=== PATIENT | female | born 1935 | race Caucasian/White ===

== ENCOUNTER 2018-09-08 20:21 | Inpatient (IN) | payer MEDICARE, BC ==
[~2018-09-08] VITALS: Ht 152.4 cm; Wt 54.4 kg
[2018-09-08] MEDS ORDERED: OS-CAL500 MG (20:24)
[2018-09-08] MEDS ORDERED: VITAMIN B COMPLEX (20:24)
[2018-09-08] MEDS ORDERED: CO Q PO (20:25)
[2018-09-08] MEDS ORDERED: [UNRECOGNIZED DRUG - OTHER] (20:25)
[2018-09-08] MEDS ORDERED: FUROSEMIDE20 MG PO (20:25)
[2018-09-08] MEDS ORDERED: LISINOPRIL40 MG PO (20:26)
[2018-09-08] MEDS ORDERED: PROSTAT (20:26)
[2018-09-08] MEDS ORDERED: TENORMIN25 MG PO (20:26)
[2018-09-08] MEDS ORDERED: K-TAB10 MEQ PO (20:26)
[2018-09-08] MEDS ORDERED: COLACE100 MG PO (20:27)
[2018-09-08] MEDS ORDERED: OXYBUTYNIN CHLOR5 MG PO (20:27)
[2018-09-08 21:30] VITALS: BP 137/60
[2018-09-08 21:33] VITALS: BP 141/76
[2018-09-08 21:36] VITALS: BP 144/72
[2018-09-08 21:39] VITALS: BP 146/65
[2018-09-08 22:15] VITALS: BP 142/67
[2018-09-08 23:17] LABS: ALBUMIN 3.3 g/dL (3.4-5.0); ANION GAP 12.8 mmol/L (8-16); BILIRUBIN - TOTAL 0.39 mg/dL (0.2-1.3); CALCIUM 9.6 mg/dL (8.5-10.1); CARBON DIOXIDE 24.6 mmol/L (21.0-32.0); CREATININE - SERUM 0.8 mg/dL (0.6-1.3); POTASSIUM - SERUM 4.4 mmol/L (3.5-5.1); PROTEIN - SERUM 6.6 g/dL (6.4-8.2)
[2018-09-08 23:19] LABS: INR 1.12 (0.85-1.17); PROTIME 13.9 SECONDS (11.6-15.0)
[2018-09-08 23:20] LABS: BASOPHILS 0.2 % (0-2); EOSINOPHILS 1.5 % (0-7); HEMATOCRIT 41.3 % (36.0-48.0); IMMATURE GRANULOCYTES 0.2 % (0-5); LYMPHOCYTES 19.8 % (15-50); MCH 30.6 pg (26.0-34.0); MCHC 33.9 g/dL (31.0-37.0); MCV 90.4 fL (80.0-100.0); MONOCYTES 9.9 % (2-11); NEUTROPHILS 68.4 % (40-80); PLATELET COUNT 340 10x3/uL (130-400); RBC 4.57 10x6/uL (4.00-5.40); RDW 14.1 % (11.5-14.5)
[2018-09-09] VITALS (7 sets, daily range): BP systolic 117–136; BP diastolic 52–68; Ht 152.4 cm; Wt 54.4 kg
[2018-09-09 08:21] LABS: BASOPHILS 0.2 % (0-2); HEMATOCRIT 36.9 % (36.0-48.0); HEMOGLOBIN 12.5 g/dL (12-16); IMMATURE GRANULOCYTES 0.1 % (0-5); LYMPHOCYTES 20.8 % (15-50); MCH 30.3 pg (26.0-34.0); MCHC 33.9 g/dL (31.0-37.0); MCV 89.3 fL (80.0-100.0); MEAN PLATELET VOLUME 8.6 fL (7.4-10.4); MONOCYTES 12.6 % (2-11); NEUTROPHILS 65.3 % (40-80); RBC 4.13 10x6/uL (4.00-5.40); RDW 14.2 % (11.5-14.5)
[2018-09-09 08:24] LABS: PLATELET COUNT 428 10x3/uL (130-400)
[2018-09-09 08:45] LABS: ALBUMIN 2.8 g/dL (3.4-5.0); ANION GAP 10.2 mmol/L (8-16); BILIRUBIN - TOTAL 0.45 mg/dL (0.2-1.3); CREATININE - SERUM 0.8 mg/dL (0.6-1.3); POTASSIUM - SERUM 4.2 mmol/L (3.5-5.1); PROTEIN - SERUM 6.1 g/dL (6.4-8.2)
--- NOTE | 2018-09-09 17:19 | MORECARE ---
CASE MANAGEMENT DISCHARGE SUMMARY PATIENT: KEANU SHEPHERD UNIT: [id number] ADM DATE: 09/08/18 AGE: 82 : 36 SEX: F ROOM/BED: [facility] AUTHOR: AGGIE GONZALEZ PHYSICIAN: REFERRING PHYSICIAN: ALVAREZ DICKINSON MD DATE OF SERVICE: 09/09/18 Discharge Plan Patient Name: KEANU SHEPHERD Facility: [facility]:[place] : 1935 Planned Disposition: Usp Facility Anticipated Discharge Date: Discharge Date: Expected LOS: Initial Reviewer: [email or web address] Initial Review Date: 09/08/2018 Generated: 09/09/18 6:19 pm Patient Name: KEANU SHEPHERD Page 44415 at 4009 All edits/amendments must be made on the electronic document DICTATION DATE: 09/09/181718 HOG FEEDER: CAROL 09/09/181718 RPT#: [id number] DC DATE: STATUS: ADM IN [facility] [address] [place] [address] END OF REPORT
--- NOTE | 2018-09-09 17:27 | MORECARE ---
CASE MANAGEMENT DISCHARGE SUMMARY PATIENT: KEANU SHEPHERD UNIT: [id number] ADM DATE: 09/08/18 AGE: 82 : 36 SEX: F [facility]ED: [facility] AUTHOR: AGGIE GONZALEZ PHYSICIAN: REFERRING PHYSICIAN: ALVAREZ DICKINSON MD DATE OF SERVICE: 09/09/18 Discharge Plan Patient Name: KEANU SHEPHERD Facility: [facility]:[place] : 1935 Planned Disposition: Long Term Facility Anticipated Discharge Date: Discharge Date: Expected LOS: Initial Reviewer: [email or web address] Initial Review Date: 09/08/2018 Generated: 09/09/18 6:26 pm DCPIA - Discharge Planning Initial Assessment Updated by [email or web address]: Paulo Wynne on 09/09/18 5:21 pm * Is the patient Alert and Oriented? No * How many steps to enter\exit or inside your home? ELEVATOR * PCP DR. BETANCUR * [facility] * Preadmission Environment Long Term Facility * Facility Name [facility] * ADLs Partial Dependent * Partial ADLs (Assistance needed) Ambulation Bathing Dressing Medication Management Transfers * Equipment Walker Wheelchair * Other Equipment NO MEDICAL EQUIPMENT PROVIDER PREFERENCE * List name and contact numbers for known caregivers / representatives who currently or will assist patient after discharge: KENDAL SHEPHERD, BRIANER, * Verbal permission to speak to the caregivers and representatives has been obtained from the patient. Yes * Community resources currently utilized None * Please name any agencies selected above. NONE * Additional services required to return to the preadmission environment? No * Can the patient safely return to the preadmission environment? Yes * Has this patient been hospitalized within the prior 30 days at any hospital? Yes Last DP export: 09/09/18 4:19 p Patient Name: KEANU SHEPHERD Page [id number] at 1727 All edits/amendments must be made on the electronic document DICTATION DATE: 09/09/181725 WHARF WORKER: CAROL 09/09/181725 RPT#: [id number] DC DATE: STATUS: ADM IN [address] [place] [address] END OF REPORT
--- NOTE | 2018-09-09 17:38 | MORECARE ---
CASE MANAGEMENT DISCHARGE SUMMARY PATIENT: KEANU SHEPHERD UNIT: [id number] ADM DATE: 09/08/18 AGE: 82 : 36 SEX: F ROOM/BED: D.2163 AUTHOR: CARLOS,DOC PHYSICIAN: REFERRING PHYSICIAN: ALVAREZ DICKINSON MD DATE OF SERVICE: 09/09/18 Discharge Plan Patient Name: KEANU SHEPHERD Facility: [facility]:[place] : 1935 Planned Disposition: Care Home Facility Anticipated Discharge Date: Discharge Date: Expected LOS: Initial Reviewer: [email or web address] Initial Review Date: 09/08/2018 Generated: 09/09/18 6:37 pm Comments DCP- Discharge Planning Updated by [id number]: Paulo Wynne on 09/09/18 4:[address] Patient Name: KEANU SHEPHERD Admission Status: ER Accout number: [id number] Admission Date: 09-08-2018 : 1935 Admission Diagnosis: Attending: ALVAREZ DICKINSON Current LOS: 1 Anticipated DC Date: Planned Disposition: Care Home Facility Primary Insurance: MEDICARE A & B PLANNED EXTERNAL PROVIDER: [facility], MEDICARE REHAB BED Discharge Planning Comments: CM MET WITH PT IN ROOM TO DISCUSS DISCHARGE PLANNING AND NEEDS. PT REPORTS LIVING AT [facility] ASSISTED LIVING. PT HAS WALKER AND WHEELCHAIR WITH NO MEDICAL EQUIPMENT PROVIDER PREFERENCE. PT HAS NO OUTSIDE SERVICES ASSISTING IN THE HOME. CM DISCUSSED AVAILABILITY OF HOME HEALTH, REHAB SERVICES AND MEDICAL EQUIPMENT. PT DENIES DISCHARGE NEEDS, REPORTS SHE WANTS TO RETURN TO [facility] AT DISCHARGE. PT REPORTS HER REASON FOR BEING IN THE HOSPITAL IS THE GIRL AT THE REHAB HERE PULLED HER UP ON THE BED AND HURT HER SHOULDER. CM CLAIRIED, [facility] CM CALLED REHAB, PT HAS NOT BEEN THERE. UPON FURTHER DISCUSSED, IT WAS DETERMINED PT CAME FROM [facility]. PT WOULD LIKE TO GO HOME IF POSSIBLE, BACK TO [facility]. CM EXPLAINED THAT PT WILL NEED TO BE FUNCTIONING WELL ENOUGH TO RETURN TO HER APARTMENT ALONE AND MAY NEED FURHTER REHAB. PT REPORTS HER BROTHER, MRAYCARMEN, TAKES CARE OF EVERYTHING BUT SHE DOES NOT HAVE HIS PHONE NUMBER. CM CALLED HEIDI AT [facility], , WHO EXPLAINED THAT PT HAS HAD SOME MILD CONFUSION AND THEY DO PLAN TO ACCEPT BACK FOR CONTINUED REHAB AT DISCHARGE WITH PLAN FOR PT TO RETURN TO [facility] AFTER REHAB AND WHEN PT IS ABLE TO PHYSICALLY ASSIST ADEQUATELY AND SAFELY WITH HER OWN CARE. [facility] PROVIDED CONTACT NUMBER FOR BROTHER MITCHELL, . CM CALLED AND LEFT MESSSAGE ASKING FOR RETURN CALL. BED HOLDING AT [facility] FOR CONTINUED REHAB AT DISCHARGE. FOR DISCHARGE, FAX DISCHARGE INFORMATION TO [facility] AT [phone], NURSE REPORT TO BE CALLED TO [facility] AT [phone]. [facility] TO ARRANGE VAN TRANSPORTATION. Mechanical Unit Repairer: Paulo Wynne DCPIA - Discharge Planning Initial Assessment Updated by [id number]: Paulo Wynne on 09/09/18 5:21 pm * Is the patient Alert and Oriented? No * How many steps to enter\exit or inside your home? ELEVATOR * PCP DR. BETANCUR * [facility] * Preadmission Environment Care Home Facility * Facility Name [facility] * ADLs Partial Dependent * Partial ADLs (Assistance needed) Ambulation Bathing Dressing Medication Management Transfers * Equipment Walker Wheelchair * Other Equipment NO MEDICAL EQUIPMENT PROVIDER PREFERENCE * List name and contact numbers for known caregivers / representatives who currently or will assist patient after discharge: BROTHER MITCHELL, * Verbal permission to speak to the caregivers and representatives has been obtained from the patient. Yes * Community resources currently utilized None * Please name any agencies selected above. NONE * Additional services required to return to the preadmission environment? No * Can the patient safely return to the preadmission environment? Yes * Has this patient been hospitalized within the prior 30 days at any hospital? Yes Last DP export: 09/09/18 4:26 p Patient Name: KEANU SHEPHERD Page 40633 at 1493 All edits/amendments must be made on the electronic document DICTATION DATE: 09/09/181736 LOADING UNIT TOOL SETTER: CAROL 09/09/181736 RPT#: [id number] DC DATE: STATUS: ADM IN [facility] [address] [place] [address] END OF REPORT
[2018-09-10 00:45] VITALS: BP 139/70
[2018-09-10 03:49] VITALS: BP 147/79
[2018-09-10 08:31] VITALS: BP 140/69
--- NOTE | 2018-09-10 10:07 | MORECARE ---
CASE MANAGEMENT DISCHARGE SUMMARY PATIENT: KEANU SHEPHERD UNIT: [id number] ADM DATE: 09/09/18 AGE: 82 : 36 SEX: F ROOM/BED: D.2133 AUTHOR: AGGIE GONZALEZ PHYSICIAN: REFERRING PHYSICIAN: ALVAREZ DICKINSON MD DATE OF SERVICE: 09/10/18 Discharge Plan Patient Name: KEANU SHEPHERD Facility: [facility]:[place] : 1935 Planned Disposition: Custodial Facility Anticipated Discharge Date: Discharge Date: Expected LOS: Initial Reviewer: [email or web address] Initial Review Date: 09/08/2018 Generated: 09/10/18 11:07 am Comments DCP- Discharge Planning Updated by [email or web address]: Cassie Santos on 09/10/18 9:[address] Patient Name: KEANU SHEPHERD Admission Status: ER Accout number: [id number] Admission Date: 09-09-2018 : 1935 Admission Diagnosis: Attending: ALVAREZ DICKINSON Current LOS: 1 Anticipated DC Date: Planned Disposition: Custodial Facility Primary Insurance: MEDICARE A & B Discharge Planning Comments: PT IS DISCHARGING BACK TO REHAB VIA REHAB TRANSPORTATION Meteorology Teacher: Cassie Santos DCP- Discharge Planning Updated by [email or web address]: Paulo Wynne on 09/09/18 4:[address] Patient Name: KEANU SHEPHERD Admission Status: ER Accout number: [id number] Admission Date: 09-08-2018 : 1935 Admission Diagnosis: Attending: ALVAREZ DICKINSON Current LOS: 1 Anticipated DC Date: Planned Disposition: Custodial Facility Primary Insurance: MEDICARE A & B PLANNED EXTERNAL PROVIDER: [facility], MEDICARE REHAB BED Discharge Planning Comments: CM MET WITH PT IN ROOM TO DISCUSS DISCHARGE PLANNING AND NEEDS. PT REPORTS LIVING AT [facility] ASSISTED LIVING. PT HAS WALKER AND WHEELCHAIR WITH NO MEDICAL EQUIPMENT PROVIDER PREFERENCE. PT HAS NO OUTSIDE SERVICES ASSISTING IN THE HOME. CM DISCUSSED AVAILABILITY OF HOME HEALTH, REHAB SERVICES AND MEDICAL EQUIPMENT. PT DENIES DISCHARGE NEEDS, REPORTS SHE WANTS TO RETURN TO [facility] AT DISCHARGE. PT REPORTS HER REASON FOR BEING IN THE HOSPITAL IS THE GIRL AT THE REHAB HERE PULLED HER UP ON THE BED AND HURT HER SHOULDER. CM CLAIRIED, PT STATES SHE WAS AT [facility]. CM CALLED REHAB, PT HAS NOT BEEN THERE. UPON FURTHER DISCUSSED, IT WAS DETERMIN[facility]. PT WOULD LIKE TO GO HOME IF POSSIBLE, BACK TO [facility]. CM EXPLAINED THAT PT WILL NEED TO BE FUNCTIONING WELL ENOUGH TO RETURN TO HER APARTMENT ALONE AND MAY NEED FURHTER REHAB. PT REPORTS HER BROTHER, MARYCARMEN, TAKES CARE OF EVERYTHING BUT SHE DOES NOT HAVE HIS PHONE NUMBER. CM CALLED HEIDI AT [facility], , WHO EXPLAINED THAT PT HAS HAD SOME MILD CONFUSION AND THEY DO PLAN TO ACCEPT BACK FOR CONTINUED REHAB AT DISCHARGE WITH PLAN FOR PT TO RETURN TO [facility] AFTER REHAB AND WHEN PT IS ABLE TO PHYSICALLY ASSIST ADEQUATELY AND SAFELY WITH HER OWN CARE. [facility] PROVIDED CONTACT NUMBER FOR BROTHER MITCHELL, . CM CALLED AND LEFT MESSSAGE ASKING FOR RETURN CALL. BED HOLDING AT [facility] FOR CONTINUED REHAB AT DISCHARGE. FOR DISCHARGE, FAX DISCHARGE INFORMATION TO [facility] AT [phone], NURSE REPORT TO BE CALLED TO [facility] AT [phone]. [facility] TO ARRANGE VAN TRANSPORTATION. Meteorology Teacher: Paulo Wynne DCPIA - Discharge Planning Initial Assessment Updated by [email or web address]: Paulo Wynne on 09/09/18 5:21 pm * Is the patient Alert and Oriented? No * How many steps to enter\exit or inside your home? ELEVATOR * PCP DR. BETANCUR * [facility] * Preadmission Environment Custodial Facility * Facility Name [facility] * ADLs Partial Dependent * Partial ADLs (Assistance needed) Ambulation Bathing Dressing Medication Management Transfers * Equipment Walker Wheelchair * Other Equipment NO MEDICAL EQUIPMENT PROVIDER PREFERENCE * List name and contact numbers for known caregivers / representatives who currently or will assist patient after discharge: BROTHER MITCHELL, * Verbal permission to speak to the caregivers and representatives has been obtained from the patient. Yes * Community resources currently utilized None * Please name any agencies selected above. NONE * Additional services required to return to the preadmission environment? No * Can the patient safely return to the preadmission environment? Yes * Has this patient been hospitalized within the prior 30 days at any hospital? Yes Last DP export: 09/09/18 4:37 p Patient Name: KEANU SHEPHERD Page 83495 at 1007 All edits/amendments must be made on the electronic document DICTATION DATE: 09/10/18 [facility] LIFE SKILLS COORDINATOR: CAROL 09/10/18 [facility] RPT#: [id number] DC DATE: STATUS: ADM IN [facility] [address] [place] [address] END OF REPORT
[2018-09-10] MEDS ORDERED: ALDACTONE50 MG (10:29)
[2018-09-10] MEDS ORDERED: CENTRUM SILVER1 EAC3 PO (10:47)
[2018-09-10] MEDS ORDERED: FERROUS SULFAT325 MG PO (10:47)
[2018-09-10] MEDS ORDERED: LOVASTATIN40 MG PO (10:47)
[2018-09-10] MEDS ORDERED: HYDROCODON-ACE1 EAC7 PO (10:49)
[2018-09-10] MEDS ORDERED: ACETAMINOPHEN500 M1 PO (10:50)
--- NOTE | 2018-09-10 13:15 | MORECARE ---
CASE MANAGEMENT DISCHARGE SUMMARY PATIENT: KEANU SHEPHERD UNIT: [id number] ADM DATE: 09/09/18 AGE: 82 : 36 SEX: F ROOM/BED: D.2133 AUTHOR: CARLOS,DOC PHYSICIAN: REFERRING PHYSICIAN: ALVAREZ DICKINSON MD DATE OF SERVICE: 09/10/18 Discharge Plan Patient Name: KEANU SHEPHERD Facility: [facility]:[place] : 1935 Planned Disposition: Senior Care Facility Anticipated Discharge Date: Discharge Date: 09/10/2018 Expected LOS: Initial Reviewer: [email or web address] Initial Review Date: 09/08/2018 Generated: 09/10/18 2:15 pm Comments DCP- Discharge Planning Updated by [email or web address]: Cassie Santos on 09/10/18 9:[address] Patient Name: EKANU SHEPHERD Admission Status: ER Accout number: [id number] Admission Date: 09-09-2018 : 1935 Admission Diagnosis: Attending: ALVAREZ DICKINSON Current LOS: 1 Anticipated DC Date: Planned Disposition: Senior Care Facility Primary Insurance: MEDICARE A & B Discharge Planning Comments: PT IS DISCHARGING BACK TO REHAB VIA REHAB TRANSPORTATION Red Cap: Cassie Santos DCP- Discharge Planning Updated by [email or web address]: Paulo Wynne on 09/09/18 4:[address] Patient Name: KEANU SHEPHERD Admission Status: ER Accout number: [id number] Admission Date: 09-08-2018 : 1935 Admission Diagnosis: Attending: ALVAREZ DICKINSON Current LOS: 1 Anticipated DC Date: Planned Disposition: Senior Care Facility Primary Insurance: MEDICARE A & B PLANNED EXTERNAL PROVIDER: [facility], MEDICARE REHAB BED Discharge Planning Comments: CM MET WITH PT IN ROOM TO DISCUSS DISCHARGE PLANNING AND NEEDS. PT REPORTS LIVING AT [facility] ASSISTED LIVING. PT HAS WALKER AND WHEELCHAIR WITH NO MEDICAL EQUIPMENT PROVIDER PREFERENCE. PT HAS NO OUTSIDE SERVICES ASSISTING IN THE HOME. CM DISCUSSED AVAILABILITY OF HOME HEALTH, REHAB SERVICES AND MEDICAL EQUIPMENT. PT DENIES DISCHARGE NEEDS, REPORTS SHE WANTS TO RETURN TO [facility] AT DISCHARGE. PT REPORTS HER REASON FOR BEING IN THE HOSPITAL IS THE GIRL AT THE REHAB HERE PULLED HER UP ON THE BED AND HURT HER SHOULDER. CM CLAIRIED, PT STATES SHE WAS AT [facility]. CM CALLED REHAB, PT HAS NOT BEEN THERE. UPON FURTHER DISCUSSED, IT WAS [facility]MIN[facility] PT WOULD LIKE TO GO HOME IF POSSIBLE, BACK TO [facility]. CM EXPLAINED THAT PT WILL NEED TO BE FUNCTIONING WELL ENOUGH TO RETURN TO HER APARTMENT ALONE AND MAY NEED FURHTER REHAB. PT REPORTS HER BROTHER, MARYCARMEN, TAKES CARE OF EVERYTHING BUT SHE DOES NOT HAVE HIS PHONE NUMBER. CM CALLED HEIDI AT [facility], , WHO EXPLAINED THAT PT HAS HAD SOME MILD CONFUSION AND THEY DO PLAN TO ACCEPT BACK FOR CONTINUED REHAB AT DISCHARGE WITH PLAN FOR PT TO RETURN TO [facility] AFTER REHAB AND WHEN PT IS ABLE TO PHYSICALLY ASSIST ADEQUATELY AND SAFELY WITH HER OWN CARE. [facility] PROVIDED CONTACT NUMBER FOR BROTHER MITCHELL, . CM CALLED AND LEFT MESSSAGE ASKING FOR RETURN CALL. BED HOLDING AT [facility] FOR CONTINUED REHAB AT DISCHARGE. FOR DISCHARGE, FAX DISCHARGE INFORMATION TO [facility] AT [phone], NURSE REPORT TO BE CALLED TO [facility] AT [phone]. [facility] TO ARRANGE VAN TRANSPORTATION. Red Cap: Paulo Wynne DCPIA - Discharge Planning Initial Assessment Updated by [id number]: Paulo Wynne on 09/09/18 5:21 pm * Is the patient Alert and Oriented? No * How many steps to enter\exit or inside your home? ELEVATOR * PCP DR. BETANCUR * [facility] * Preadmission Environment Senior Care Facility * Facility Name [facility] * ADLs Partial Dependent * Partial ADLs (Assistance needed) Ambulation Bathing Dressing Medication Management Transfers * Equipment Walker Wheelchair * Other Equipment NO MEDICAL EQUIPMENT PROVIDER PREFERENCE * List name and contact numbers for known caregivers / representatives who currently or will assist patient after discharge: BROTHER MITCHELL, * Verbal permission to speak to the caregivers and representatives has been obtained from the patient. Yes * Community resources currently utilized None * Please name any agencies selected above. NONE * Additional services required to return to the preadmission environment? No * Can the patient safely return to the preadmission environment? Yes * Has this patient been hospitalized within the prior 30 days at any hospital? Yes Last DP export: 09/10/18 9:07 a Patient Name: KEANU SHEPHERD Page 75833 at 1315 All edits/amendments must be made on the electronic document DICTATION DATE: 09/10/181314 SPECIALIST EMPLOYEE LABOR RELATIONS: CAROL 09/10/18 1315 RPT#: [id number] DC DATE:09/10/18 STATUS: DIS IN [facility] [address] [place] [address] END OF REPORT
== END 2018-09-10 11:57 | DRG 563 ==
LOC: D.ER 20:21 → OBSVTIME 22:36 → D.M2 22:36 → D.ER 22:37 → D.M2 09-09 18:00
PROVIDERS: Family Medicine; ADMIT Orthopaedic Surgery; ATTEND Orthopaedic Surgery
PROC: 0RSJXZZ Reposition Right Shoulder Joint, External Approach (ICD-10-PCS; principal; 2018-09-09 09:45)
DX: S43.004A Unspecified dislocation of right shoulder joint, initial encounter (principal); X50.9XXA Other and unspecified overexertion or strenuous movements or postures, initial encounter; Y92.122 Bedroom in nursing home as the place of occurrence of the external cause; I10 Essential (primary) hypertension

== ENCOUNTER → 2018-10-07 12:43 | Outpatient (CLI) | payer MEDICARE, BC ==
[2018-09-09 13:04] VITALS: BMI 23.4
[~2018-10-07 12:43] MED LIST: ACETAMINOPHEN500 M1 PO; ALDACTONE50 MG; CENTRUM SILVER1 EAC3 PO; CO Q PO; COLACE100 MG PO; FERROUS SULFAT325 MG PO; FUROSEMIDE20 MG PO; HYDROCODON-ACE1 EAC7 PO; K-TAB10 MEQ PO; LISINOPRIL40 MG PO; LOVASTATIN40 MG PO; OS-CAL500 MG; OXYBUTYNIN CHLOR5 MG PO; PROSTAT; TENORMIN25 MG PO; VITAMIN B COMPLEX; [UNRECOGNIZED DRUG - OTHER]
== END | disposition home or self-care (01) ==
LOC: D.CT 12:43
PROVIDERS: ATTEND Clinical Nurse Specialist Family Health
DX: M25.511 Pain in right shoulder (principal)